=== PATIENT | female | born 2000 | race Caucasian/White ===

== ENCOUNTER 2018-10-20 16:39 | Emergency (ER) | payer BC ==
[~2018-10-20] VITALS: Ht 175.3 cm; Wt 61.3 kg
[2018-10-20 17:14] VITALS: BP 123/88
== END 2018-10-20 18:32 | disposition home or self-care (01) ==
LOC: ED 17:52
DX: R07.89 Other chest pain (principal)
CPT/HCPCS: 71046; 93005; 99283

== ENCOUNTER 2019-01-19 23:52 | Emergency (ER) | payer BC ==
[~2019-01-19] VITALS: Ht 175.3 cm; Wt 61.8 kg
[2019-01-19 23:54] VITALS: BP 123/81
== END 2019-01-20 01:49 | disposition home or self-care (01) ==
LOC: ED 23:59
DX: R06.00 Dyspnea, unspecified (principal)
CPT/HCPCS: 71046; 99283

== ENCOUNTER 2020-02-27 20:26 | Emergency (ER) | payer BC ==
[~2020-02-27] VITALS: Ht 175.3 cm; Wt 65.0 kg
[2020-02-27 21:45] LABS: HCG UR SG 1.024 (1.003-1.030); MICROSCOPIC AUTO
--- NOTE | 2020-02-27 22:00 | NUR ---
late entry d/t pt care: pt came into ed tonight states that she had covid about a month ago and was cleared. pt is now having GERD and back pain whenever she has episodes of acid reflux. pt reports feeling sob and winded more easily now. pt changed into gown, resting on yasemin, aniceto, mom at bs, pt placed on spo2/bp/ecg monitoring, wctm.
[2020-02-27 22:18] LABS: BASOPHILS % (AUTO) 1 % (0-1); EOSINOPHILS % (AUTO) 2 % (1-7); LYMPHOCYTES % (AUTO) 35 % (22-44); MEAN CORPUSCULAR HEMOGLOBIN 29.7 pg (27.0-34.8); MEAN CORPUSCULAR HGB CONC 33.7 g/dL (32.4-35.8); MEAN PLATELET VOLUME 9.2 fL (7.4-10.4); MONOCYTES % (AUTO) 7 % (2-9); NEUTROPHILS % (AUTO) 55 % (42-75); PLATELET COUNT 247 x10^3/uL (130-400); RED BLOOD COUNT 4.73 x10^6/uL (3.82-5.3); RED CELL DISTRIBUTION WIDTH 13.2 % (9.6-15.2)
[2020-02-27 22:19] LABS: ALANINE AMINOTRANSFERASE 27 U/L (12-78); ALBUMIN 4.1 g/dL (3.4-5.0); ANION GAP 7 mmol/L (5-15); CALCIUM 9.3 mg/dL (8.5-10.1); CHLORIDE 109 mmol/L (98-107); CREATININE 0.75 mg/dL (0.55-1.02)
[2020-02-27 22:21] LABS: ALKALINE PHOSPHATASE 49 U/L (45-117); BILIRUBIN,TOTAL 0.3 mg/dL (0.2-1.0); TOTAL PROTEIN 7.6 g/dL (6.4-8.2)
[2020-02-27 22:23] LABS: MD NO
[2020-02-27] MEDS ORDERED: MAALOX/HYOSCYAMINE/LIDOCAINE 45 ML BTL ONE (22:38)
--- NOTE | 2020-02-27 22:49 | NUR ---
PT MEDICARED PER May, RIGHTS REVIEWED, MOM AT , WAITING FOR ADDITIONAL LAB RESULTS, WCTM
[2020-02-27] MEDS ORDERED: MAALOX/HYOSCYAMINE/LIDOCAINE 45 ML BTL PO ONE (23:00)
--- NOTE | 2020-02-27 23:31 | NUR ---
NO CHANGE IN CONDITION, ALBERT BAGLEY AT BS, NAD, PT APPEARS COMFORTABLE, WCBROOK. MOM AT BS.
[2020-02-27] MEDS ORDERED: FAMO-79 PO (23:34)
[2020-02-28 00:37] VITALS: BP 117/80
--- NOTE | 2020-02-28 00:37 | NUR ---
VSS. PT AMBULATORY. PT VERBALIZED UNDERSTANDING OF DISCHARGE INSTRUCTIONS. SCHOOL NOTE GIVEN.
== END 2020-02-28 00:52 | disposition home or self-care (01) ==
LOC: ED 22:39
DX: K29.00 Acute gastritis without bleeding (principal); R00.2 Palpitations; R10.13 Epigastric pain; R06.02 Shortness of breath; R00.0 Tachycardia, unspecified; R42 Dizziness and giddiness
CPT/HCPCS: 36415; 71045; 76700; 80053; 81001; 81025; 83690; 85025; 85379; 93005; 99285